=== PATIENT | male | born 1960 | race Caucasian/White ===

== ENCOUNTER 2022-03-29 19:29 | Inpatient (IN) ==
[2022-03-29] MEDS ORDERED: Morphine Sulfate 2 MG/ML SYRINGE IVP ONE (20:58)
[2022-03-29 21:21] LABS: Basophils # 0.1 K/mcL (0.0-0.2); Basophils % 0.6 %; Eosinophils # 0.3 K/mcL (0.0-0.6); Eosinophils % 2.2 %; Hematocrit 42.5 % (37.5-50.1); Hemoglobin 13.7 g/dL (12.9-16.9); Immature Granulocytes % 0.7 % (0-4); Lymphocytes # 1.6 K/mcL (0.6-4.6); Lymphocytes % 14.2 %; Mean Corpuscular HGB Conc 32.2 g/dL (31.6-35.5); Mean Corpuscular Hemoglobin 30.2 pg (28.0-33.3); Mean Corpuscular Volume 93.8 fL (83.0-100.0); Mean Platelet Volume 9.7 fL (9.4-12.4); Monocytes # 0.8 K/mcL (0.0-1.3); Neutrophils # 8.4 K/mcL (1.6-8.9); Platelet Count 225 K/mcL (140-400); Red Blood Count 4.53 M/mcL (4.19-5.50); Red Cell Distribution Width 12.2 % (11.5-14.5); Segmented Neutrophils % 75.3 %; White Blood Count 11.2 K/mcL (4.3-11.1)
[2022-03-29 21:40] LABS: Calcium 8.2 mg/dL (8.6-10.3); Potassium 4.2 mEq/L (3.5-5.1)
[2022-03-29 21:47] LABS: VBG HCO3 29 mEq/L (21-27); VBG PCO2 52 mmHg (41-51); VBG PH 7.36 pH Units (7.32-7.42); VBG PO2 62 mmHg (25-50)
[2022-03-29 21:54] LABS: Amphetamine Screen,Urine Negative ng/mL (Cutoff=1000); Barbiturate Screen,Urine Negative ng/mL (Cutoff=200); Benzodiazepines Screen,Urine Negative ng/mL (Cutoff=200); Cannabinoid Screen,Urine Positive ng/mL (Cutoff = 50); Cocaine Screen,Urine Negative ng/mL (Cutoff= 300); Opiate Screen,Urine Negative ng/mL (Cutoff=300); Phencyclidine Screen,Urine Negative ng/mL (Cutoff=25)
[2022-03-29 21:54] LABS: Thyroid Stimulating Hormone 1.35 mcIU/mL (0.340-5.600); Troponin I 0.07 ng/mL (< 0.04)
[2022-03-29] MEDS ORDERED: Aspirin 325 MG TABLET PO ONE (22:34)
[2022-03-29] MEDS ORDERED: Naloxone 0.4 MG/ML INJ IVP PRN ×2 (22:42→23:13)
[2022-03-29] MEDS ORDERED: Ondansetron ODT 4 MG TAB.RAPDIS SL PRN (22:42)
[2022-03-29] MEDS ORDERED: Melatonin 3 MG TABLET PO PRN (22:42)
[2022-03-29] MEDS ORDERED: Furosemide 20 MG/2 ML VIAL IVP ONE (22:49)
[2022-03-29] MEDS ORDERED: Nitroglycerin 0.4 MG TAB.SUBL SL PRN (23:10)
[2022-03-29] MEDS ORDERED: Acetaminophen 325 MG TABLET PO PRN (23:13)
[2022-03-30] MEDS ORDERED: GI Cocktail 40 ML EACH PO ONE (00:40)
[2022-03-30] MEDS ORDERED: *HR* Metoprolol 5 MG/5 ML VIAL IVP ONE (00:40)
[2022-03-30 01:46] LABS: Adenovirus Not Detected (Not Detect); Coronavirus 229E Not Detected (Not Detect); Coronavirus HKU1 Not Detected (Not Detect); Coronavirus NL63 Not Detected (Not Detect)
[2022-03-30 01:47] LABS: Bordetella Pertussis Not Detected (Not Detect); Chlamydophila pneumoniae Not Detected (Not Detect); Coronavirus OC43 Not Detected (Not Detect); Human Metapneumovirus Not Detected (Not Detect); Human Rhinovirus/Enterovirus Not Detected (Not Detect); Influenza A Subtype 2009 H1 Not Detected (Not Detect); Influenza B Not Detected (Not Detect); Mycoplasma pneumoniae Not Detected (Not Detect); Parainfluenza Virus 1 Not Detected (Not Detect); Parainfluenza Virus 2 Not Detected (Not Detect); Parainfluenza Virus 3 Not Detected (Not Detect); Parainfluenza Virus 4 Not Detected (Not Detect); Respiratory Syncytial Virus Not Detected (Not Detect); SARS-CoV-2 Not Detected (Not Detect)
[2022-03-30 02:39] LABS: Hematocrit 44.8 % (37.5-50.1); Hemoglobin 14.8 g/dL (12.9-16.9); Mean Corpuscular Hemoglobin 30.5 pg (28.0-33.3); Mean Corpuscular Volume 92.2 fL (83.0-100.0); Mean Platelet Volume 9.3 fL (9.4-12.4); Platelet Count 237 K/mcL (140-400); Red Blood Count 4.86 M/mcL (4.19-5.50); Red Cell Distribution Width 12.2 % (11.5-14.5); White Blood Count 16.4 K/mcL (4.3-11.1)
[2022-03-30 02:46] LABS: Estimated Average Glucose 131 mg/dl; Hemoglobin A1C 6.2 %
[2022-03-30 03:07] LABS: BUN/Creatinine Ratio 14 (6-26); Blood Urea Nitrogen 13 mg/dL (6-20); Calcium 8.7 mg/dL (8.6-10.3); Carbon Dioxide 31 mEq/L (23-29); Chloride 100 mEq/L (98-107); Glucose 153 mg/dL (70-105); Osmolality,Calculated 287 (280-300); Potassium 4.2 mEq/L (3.5-5.1); Sodium 137 mEq/L (136-145)
[2022-03-30 03:10] LABS: Troponin I 0.07 ng/mL (< 0.04)
[2022-03-30] MEDS: Aspirin 81 MG TAB.CHEW PO SCH (09:48)
[2022-03-30] MEDS ORDERED: Metoprolol XL (24 HR) Succ 25 MG TAB.ER.24H PO SCH (11:00)
[2022-03-30] MEDS: *HR* Metoprolol 5 MG/5 ML VIAL IVP PRN (15:23)
[2022-03-30] MEDS: *HR* Heparin 5,000 UNIT/ML VIAL SQ SCH (17:46)
[2022-03-31 02:58] LABS: Hematocrit 41.3 % (37.5-50.1); Hemoglobin 13.3 g/dL (12.9-16.9); Mean Corpuscular HGB Conc 32.2 g/dL (31.6-35.5); Mean Corpuscular Hemoglobin 30.3 pg (28.0-33.3); Mean Corpuscular Volume 94.1 fL (83.0-100.0); Platelet Count 207 K/mcL (140-400); Red Blood Count 4.39 M/mcL (4.19-5.50); Red Cell Distribution Width 12.2 % (11.5-14.5); White Blood Count 12.8 K/mcL (4.3-11.1)
[2022-03-31 03:17] LABS: Calcium 8.2 mg/dL (8.6-10.3); Potassium 4.1 mEq/L (3.5-5.1)
[2022-03-31] MEDS: *HR* Heparin 5,000 UNIT/ML VIAL SQ SCH ×2 (05:58→16:24)
[2022-03-31] MEDS ORDERED: 0.9 % Sodium Chloride 500 ML IVC ONE (08:50)
[2022-03-31] MEDS: Aspirin 81 MG TAB.CHEW PO SCH (09:01)
[2022-03-31] MEDS: Metoprolol XL (24 HR) Succ 25 MG TAB.ER.24H PO SCH (09:01)
[2022-03-31] MEDS: *HR* Metoprolol 5 MG/5 ML VIAL IVP PRN (09:37)
[2022-03-31] MEDS ORDERED: Iopamidol - 370 500 ML MLS IVP ONE (13:52)
[2022-03-31 20:30] VITALS: TEMP 97.5
[2022-04-01 02:45] LABS: Hematocrit 40.6 % (37.5-50.1); Hemoglobin 13.1 g/dL (12.9-16.9); Mean Corpuscular HGB Conc 32.3 g/dL (31.6-35.5); Mean Corpuscular Volume 92.9 fL (83.0-100.0); Mean Platelet Volume 10.1 fL (9.4-12.4); Platelet Count 186 K/mcL (140-400); Red Blood Count 4.37 M/mcL (4.19-5.50); Red Cell Distribution Width 12.3 % (11.5-14.5); White Blood Count 9.8 K/mcL (4.3-11.1)
[2022-04-01 03:17] LABS: BUN/Creatinine Ratio 15 (6-26); Blood Urea Nitrogen 14 mg/dL (6-20); Calcium 8.1 mg/dL (8.6-10.3); Carbon Dioxide 30 mEq/L (23-29); Chloride 105 mEq/L (98-107); Glucose 95 mg/dL (70-105); Osmolality,Calculated 288 (280-300); Potassium 4.1 mEq/L (3.5-5.1); Sodium 139 mEq/L (136-145)
[2022-04-01] MEDS: *HR* Heparin 5,000 UNIT/ML VIAL SQ SCH (05:34)
[2022-04-01 07:29] VITALS: BP 120/60; PULSE 68; O2SAT 98
[2022-04-01] MEDS: Aspirin 81 MG TAB.CHEW PO SCH (10:09)
[2022-04-01] MEDS: Metoprolol XL (24 HR) Succ 25 MG TAB.ER.24H PO SCH (10:09)
== END 2022-04-01 11:24 | disposition home or self-care (01) | DRG 281 ==
LOC: 2NENU 19:29 → EMEROOARM 19:29 → SUATTDRO 22:55 → 2NENU 23:51
PROVIDERS: ADMIT Internal Medicine; ATTEND Nurse Practitioner